=== PATIENT | female | born 1975 ===

== ENCOUNTER 2017-03-31 08:54 | Emergency (ER) | payer MEDICAID ==
[2017-03-31] MEDS ORDERED: Albuterol-Ipratrop 3 mg / 0.5 (3 ml) UD ONE (09:11)
[2017-03-31] MEDS ORDERED: Albuterol-Ipratrop 3 mg / 0.5 (3 ml) UD INH STA ×2 (10:00)
--- NOTE | 2017-03-31 10:23 | ED PDOC ---
HPI: SOB/CHF/COPD Time Seen by Provider: 03/31/17 09:44 Chief Complaint (Nursing): Shortness Of Breath Chief Complaint (Provider): SOB History Per: Patient History/Exam Limitations: no limitations Onset/Duration Of Symptoms: Days (2) Current Symptoms Are (Timing): Still Present Current Respiratory Medications: Albuterol Additional Complaint(s): Pt presents with c/o SOB and wheezing since 11 PM yesterday, used nebulizer and Ventolin at home without relief. Also reports nonproductive cough. Denies fever, CP, palpitations. Past Medical History Reviewed: Nursing Documentation, Vital Signs Vital Signs: Last Vital Signs Temp 97.9 F 03/31/17 14:09 Pulse 82 03/31/17 14:09 Resp 14 03/31/17 14:09 BP 121/65 03/31/17 14:09 Pulse Ox 97 04/01/17 19:00 - Medical History PMH: Asthma, Seizures - Family History Family History: States: Unknown Family Hx - Living Arrangements Living Arrangements: With Family - Social History Current smoker - smoking cessation education provided: No Alcohol: None - Home Medications Home Medications: Ambulatory Orders Medication Instructions Recorded Azithromycin [Zithromax] 250 mg PO DAILY #4 tab 03/31/17 Prednisone 50 mg PO DAILY #4 tab 03/31/17 - Allergies Allergies/Adverse Reactions: Allergies Allergy/AdvReac Type Severity Reaction Status Date / Time No Known Allergies Allergy Verified 03/31/17 09:43 Review of Systems Constitutional: Negative for: Fever, Chills Cardiovascular: Negative for: Chest Pain, Palpitations Respiratory: Positive for: Cough (Nonproductive), Shortness of Breath. Negative for: SOB with Exertion, Pleuritic Pain, Wheezing Gastrointestinal: Negative for: Nausea, Vomiting, Abdominal Pain, Diarrhea Skin: Negative for: Rash, Lesions Neurological: Negative for: Weakness, Headache Physical Exam - Reviewed Nursing Documentation Reviewed: Yes Vital Signs Reviewed: Yes - Physical Exam Appears: Positive for: Well, No Acute Distress (Speaking full sentences) Skin: Positive for: Normal Color, Warm, Dry Eye Exam: Positive for: Normal appearance, EOMI Neck: Positive for: Normal Cardiovascular/Chest: Positive for: Regular Rate, Rhythm Respiratory: Positive for: Wheezing. Negative for: Decreased Breath Sounds, Accessory Muscle Use, Rales, Rhonchi, Stridor, Respiratory Distress Extremity: Positive for: Normal ROM Neurologic/Psych: Positive for: Alert, Oriented - Laboratory Results Result Diagrams: 03/31/17 10:54 03/31/17 10:54 - ECG Interpretation Of ECG: NSR @ 97, IRBBB. O2 Sat by Pulse Oximetry: 97 - Progress Re-evaluation Time: 13:40 Condition: Improved (Wheezing resolved.) Medical Decision Making Medical Decision Makin yo female with SOB and wheezing. - labs - EKG - CXR - Duonebs - Solumedrol Accession No. : [id number] Patient Name / ID : MIRADNA KAMARA / [id number] Exam Date : 03/31/2017 10:17:41 ( Approved ) Study Comment : Sex / Age : F / 42Y Creator : Glen Aldridge MD Dictator : Glen Aldridge MD Capacitor Tester : Environmental Field Office Manager : Glen Aldridge MD Approver2 : Report Date : 03/31/2017 13:12:38 My Comment : HISTORY: SOB COMPARISON: No prior. FINDINGS: LUNGS: Patient rotated toward the left expose the right hilar vascular anatomy but is otherwise unremarkable. No acute infiltrate bilaterally. PLEURA: No significant pleural effusion identified, no pneumothorax apparent. CARDIOVASCULAR: Normal. OSSEOUS STRUCTURES: No significant abnormalities. VISUALIZED UPPER ABDOMEN: Normal. OTHER FINDINGS: None. IMPRESSION: No acute cardiopulmonary disease appreciated. Disposition - Clinical Impression Clinical Impression: Asthma exacerbation - Disposition Referrals: Nona Askew MD [Primary Care Provider] - Disposition: Routine/Home Disposition Time: 13:54 Condition: IMPROVED Prescriptions: Azithromycin [Zithromax] 250 mg PO DAILY #4 tab Prednisone 50 mg PO DAILY #4 tab Instructions: Asthma (ED) Forms: E la Cart[employer] (Iranian)
[2017-03-31 11:14] LABS: BASO % 0.4 % (0.0-2.0); EOS # 0.1 K/uL (0.0-0.7); EOS % 0.7 % (0.0-4.0); HEMATOCRIT 38.3 % (34.0-47.0); LYMPH # 1.4 K/uL (1.0-4.3); LYMPH % 9.9 % (20.0-40.0); MEAN CELL VOLUME 89.6 fl (81.0-99.0); MEAN CORPUSCULAR HEMOGLOBIN 28.8 pg (27.0-31.0); MEAN CORPUSCULAR HGB CONC 32.1 g/dL (33.0-37.0); MEAN PLATELET VOLUME 7.9 fl (7.2-11.7); MONO # 0.3 K/uL (0.0-0.8); MONO % 2.3 % (0.0-10.0); NEUT # 11.9 K/uL (1.8-7.0); NEUT % 86.7 % (50.0-75.0); PLATELET COUNT 323 K/uL (130-400); RED CELL DISTRIBUTION WIDTH 13.2 % (11.5-14.5); WHITE BLOOD COUNT 13.7 K/uL (4.8-10.8)
[2017-03-31 11:27] LABS: ALB/GLOB RATIO 1.3 (1.0-2.1); ALKALINE PHOSPHATASE 70 U/L (38-126); ALT/SGPT 39 U/L (9-52); AST/SGOT 21 U/L (14-36); BILIRUBIN,TOTAL 0.1 mg/dl (0.2-1.3); BLOOD UREA NITROGEN 13 mg/dl (7-17); CALCIUM 9.1 mg/dL (8.4-10.2); CARBON DIOXIDE 22 mmol/L (22-30); CHLORIDE 107 mmol/L (98-107); GFR AFRICAN-AMERICAN > 60; GLUCOSE,RANDOM 176 mg/dL (65-105); POTASSIUM 3.7 MMOL/L (3.6-5.0); SODIUM 142 mmol/l (132-148); TOTAL PROTEIN 7.5 G/DL (6.3-8.2)
[2017-03-31 12:46] LABS: NEUTROPHIL 85 % (42-75); TOTAL CELLS COUNTED 100
--- NOTE | 2017-03-31 13:14 | RAD ---
HISTORY: SOB COMPARISON: No prior. FINDINGS: LUNGS: Patient rotated toward the left expose the right hilar vascular anatomy but is otherwise unremarkable. No acute infiltrate bilaterally. PLEURA: No significant pleural effusion identified, no pneumothorax apparent. CARDIOVASCULAR: Normal. OSSEOUS STRUCTURES: No significant abnormalities. VISUALIZED UPPER ABDOMEN: Normal. OTHER FINDINGS: None. IMPRESSION: No acute cardiopulmonary disease appreciated.
[2017-03-31 14:10] VITALS: BP 121/65; PULSE 82; RESP 14; TEMP 97.9
--- NOTE | 2017-03-31 19:32 | CARD ---
APPROVED REPORT EKG Measurement Heart [id number] <Conclusion> Normal sinus rhythm Incomplete right bundle branch block Borderline ECG
[2017-04-01 19:00] VITALS: O2SAT 97
== END 2017-03-31 14:12 | disposition home or self-care (01) ==
LOC: H.ER 08:54
DX: J45.901 Unspecified asthma with (acute) exacerbation (principal)
CPT/HCPCS: 71010; 80053; 85025; 93005; 94640; 96374; 99284; J2930